=== PATIENT | male | born 1980 | race Caucasian/White ===

== ENCOUNTER 2016-07-17 10:21 | Emergency (ER) ==
[2016-07-17 10:27] VITALS: BP 128/94; TEMP 97.6; BMI 17.7
--- NOTE | 2016-07-17 10:38 | ED.PDOC ---
General ED Provider: Dr. GHULAM JEONG JR Chief Complaint: Scrotal Pain Stated Complaint: pain to rt groin area last pm--states feels like a pulled muscle--had hernia repair rt side in past--no n/v or fever--no diarrhea--no radiation[End]97.6 99 20 97% 128/94 8/10 denies dysuria--no n/v--pain worsened when walks-[End](WT 145 04/18). TESTICULAR CANCER 2004 Time Seen by Physician: 10:38 Mode of Arrival: Walk-In Information Source: Patient Exam Limitations: No limitations Nursing and Triage Documentation Reviewed and Agree: No Review of Systems - Review Of Systems Constitutional: Reports: No symptoms Eyes: Reports: No symptoms Ears, Nose, Mouth, Throat: Reports: No symptoms Respiratory: Reports: No symptoms Cardiac: Reports: No symptoms GI: Reports: Abdominal pain (burning LLQ when groin hurts no constipation no diarrhea) : Reports: Pain Musculoskeletal: Reports: Other Skin: Reports: No symptoms Neurological: Reports: No symptoms Endocrine: Reports: No symptoms Hematologic/Lymphatic: Reports: No symptoms All Other Systems: Other Past Medical History - Past Medical History Previously Healthy: Yes Endocrine: Reports: None Cardiovascular: Reports: None Respiratory: Reports: None Hematological: Reports: None Gastrointestinal: Reports: None Genitourinary: Reports: None Neuro/Psych: Reports: None Musculoskeletal: Reports: None Cancer: Reports: Other (testicular-RIGHT ORCHIECTOMY [id number] TO DISTAL AND MIDDLE CORD NOT TO PROXIMAL 90%SEMINOMA 10%GERMINOMA-FOLLOWUP 08/04/[address] KIDNEYSNO GARETH NO METS NO RENAL MASSES-NOTE NO CHEMO GIVEN) Other Pertinent Past Medical History: Abscess(ED)[id number] 06/19/15 - Surgical History General Surgical History: Reports: Orthopedic (RIGHT HAND LIGAMENT SURGERY DUE TO INJURY), Other (RIGHT TESTICLE REMOVED, CANCER (TESTICULAR CANCER 2004)) - Family History Family History: Reports: Unknown (TESTICULAR CANCER) - Social History Smoking Status: Current every day smoker, Heavy tobacco smoker Hx Substance Use: No Alcohol Screening: None Physical Exam - Physical Exam Appearance: Well-appearing, Thin Pain Distress: Moderate Neck: Supple Respiratory: Airway patent Musculoskeletal: Normal strength, ROM intact, No edema, No calf tenderness ( tender right pelvis no muscular [id number] pain on standing on heel [place] right groin lst testicel nontender right testible absent) Skin: Warm, Dry, Normal color Neurological: Sensation intact, Motor intact, Reflexes intact, Cranial nerves intact, Alert, Oriented Psychiatric: Affect appropriate, Anxious Interpretation - Radiology Interpretation Radiology Interpretation By: ED Physician Radiology Results: Negative Exam Interpreted: Other (pelvis irregularity ant ramus appears wnl) Critical Care Note - Critical Care Note Total Time (mins): 0 Course - Course Orders, Labs, Meds: Lab Review 07/17/16 10:50 Urine Color Yellow Urine Clarity Clear Urine pH 6.0 Ur Specific [place] 1.020 Urine Protein Negative Urine Glucose (UA) Negative Urine Ketones Negative Urine Blood Negative Urine Nitrite Negative Urine Bilirubin Negative Urine Urobilinogen 1.0 Ur Leukocyte Esterase Negative Orders Category Date Time Status UA [URINALYSIS C & S IF INDICATED] Stat LAB 07/17/16 10:50 Completed PELVIS 1 OR 2 VIEWS Stat RADS 07/17/16 10:47 Completed Vital Signs: Temp Pulse Resp BP Pulse Ox 07/17/16 10:22 97.6 F 99 H 20 128/94 H 97 Departure - Departure Time of Disposition: 11:30 Disposition: HOME SELF-CARE Discharge Problem: Strain of muscle of right groin region Instructions: Muscle Strain (ED) Condition: Good Pt referred to PMD for follow-up: Yes Additional Instructions: daily walking advil for pain norco for pain not releived(no more than two days) recheckPMD one week sooner if worse x-ray shows nothing of concern may follow up with [facility] Prescriptions: Hydrocodone Bit/Acetaminophen [[place] 5-325] 1 - 2 tab PO Q6HR PRN #12 tablet PRN Reason: pain Ibuprofen [Motrin] 600 mg PO QID PRN #30 tablet PRN Reason: PAIN Allergies/Adverse Reactions: Allergies tramadol Allergy (Verified 07/17/16 10:30) Vomiting Home Medications: Ambulatory Orders Hydrocodone Bit/Acetaminophen [[place] 5-325] 1 - 2 tab PO Q6HR PRN #12 tablet Ibuprofen [Motrin] 600 mg PO QID PRN #30 tablet 07/17/16
[2016-07-17 10:59] LABS: ADD URINE MICROSCOPIC NO; BILIRUBIN,URINE Negative (NEGATIVE); KETONES,URINE Negative (NEGATIVE); LEUKOCYTE ESTERASE ,URINE Negative (NEGATIVE); NITRITE,URINE Negative (NEGATIVE); PROTEIN,URINE Negative (NEGATIVE); URINE, BLOOD Negative (NEGATIVE)
--- NOTE | 2016-07-17 11:24 | DI ---
Exam: AP pelvis History: Tender right anterior ramus. History of testicular carcinoma Findings: AP view of the pelvis is performed and compared to the prior study of 04/09/2016. The [place] pelvic ring appears intact. There is no evidence of concerning osteolytic or osteoblastic proces s nor evidence of recent or healing fracture with particular attention to the right side of the pelv is. Both femoral heads are in satisfactory relationship to their respective acetabula. There are b enign-appearing lucencies with well-defined sclerotic margins seen at the level of the femoral necks bilaterally presumably due to degenerative cysts appearing unchanged dating to 04/09/2016. Sacroil iac joints and pubic symphysis appeared normal in width. Impression: No evidence of pathologic bony production or destruction nor disruption of the bony pel delilah ring nor the hips. Suspect benign-appearing lucencies with sclerotic margins to be benign cysts at the level of both fe moral neck regions appearing unchanged dating to 04/09/2016.
== END 2016-07-17 11:46 | disposition home or self-care (01) ==
LOC: ED 10:21
DX: S39.011A Strain of muscle, fascia and tendon of abdomen, initial encounter (principal); F17.210 Nicotine dependence, cigarettes, uncomplicated
CPT/HCPCS: 81001; 99282

== ENCOUNTER 2016-11-08 07:18 | Emergency (ER) ==
[2016-11-08 07:26] VITALS: BP 126/73; TEMP 97.3; BMI 18.3
[2016-11-08] MEDS ORDERED: TENIVAC IM ONE (07:30)
--- NOTE | 2016-11-08 07:36 | ED.PDOC ---
General ED Provider: Dr. MALU PATHAK-ER Chief Complaint: Puncture Wound Stated Complaint: i got hit by a nail gun accidentally yesterday Time Seen by Physician: 07:34 Mode of Arrival: Walk-In Information Source: Patient Exam Limitations: No limitations Nursing and Triage Documentation Reviewed and Agree: Yes Skin Complaint Exam - Skin/Soft Tissue Complaint/Exam Onset/Duration: 24hrs Symptoms Are: Still present Timing: Constant Initial Severity: Mild Current Severity: Mild Location: distal left thigh Character: Reports: Swelling, Painful. Denies: Redness, Raised Aggravating: Reports: Touch Alleviating: Reports: None Associated Signs and Symptoms: Reports: Bruising, Tenderness. Denies: Fever, Chills, Itching, Drainage, Joint swelling Related History: Reports: Recent trauma Related Surgical History: Reports: None Recent Exposure to Others w/Similar Symptoms: No Skin Findings: Present: Other Joint Tenderness Present: No Differential Diagnoses: Other Review of Systems - Review Of Systems Constitutional: Reports: No symptoms Eyes: Reports: No symptoms Ears, Nose, Mouth, Throat: Reports: No symptoms Respiratory: Reports: No symptoms Cardiac: Reports: No symptoms GI: Reports: No symptoms : Reports: No symptoms Musculoskeletal: Reports: No symptoms Skin: Reports: Other (puncture wound) Neurological: Reports: No symptoms Endocrine: Reports: No symptoms Hematologic/Lymphatic: Reports: No symptoms All Other Systems: Reviewed and Negative Past Medical History - Past Medical History Previously Healthy: Yes Endocrine: Reports: None Cardiovascular: Reports: None Respiratory: Reports: None Hematological: Reports: None Gastrointestinal: Reports: None Genitourinary: Reports: None Neuro/Psych: Reports: None Musculoskeletal: Reports: None Cancer: Reports: Other (testicular-RIGHT ORCHIECTOMY [id number] TO DISTAL AND MIDDLE CORD NOT TO PROXIMAL 90%SEMINOMA 10%GERMINOMA-FOLLOWUP 08/04/[address] KIDNEYSNO GARETH NO METS NO RENAL MASSES-NOTE NO CHEMO GIVEN) Other Pertinent Past Medical History: Abscess(ED)[id number] 06/19/15 - Surgical History General Surgical History: Reports: Orthopedic (RIGHT HAND LIGAMENT SURGERY DUE TO INJURY), Other (RIGHT TESTICLE REMOVED, CANCER (TESTICULAR CANCER 2004)) - Family History Family History: Reports: Unknown (TESTICULAR CANCER) - Social History Smoking Status: Current every day smoker, Heavy tobacco smoker Hx Substance Use: No Alcohol Screening: None Lives: With family - Immunizations Tetanus Shot up to Date: (unsure) Physical Exam - Physical Exam Appearance: Well-appearing, No pain distress, Well-nourished Pain Distress: Mild Eyes: MONIQUE, EOMI, Conjunctiva clear ENT: Ears normal, Nose normal, Oropharynx normal Neck: Supple Respiratory: Airway patent, Breath sounds clear, Breath sounds equal, Respirations nonlabored Cardiovascular: RRR, Pulses normal, No rub, No murmur GI/: Soft, Nontender, No masses, Bowel sounds normal, No Organomegaly Musculoskeletal: Normal strength, ROM intact, No edema, No calf tenderness Skin: Warm, Dry, Normal color (noted healing puncture wound distal left thigh) Neurological: Sensation intact, Motor intact, Reflexes intact, Cranial nerves intact, Alert, Oriented Psychiatric: Affect appropriate, Mood appropriate Interpretation - Radiology Interpretation Radiology Interpretation By: ED Physician Radiology Results: Negative Critical Care Note - Critical Care Note Total Time (mins): 0 Course - Course Orders, Labs, Meds: Orders Category Date Time Status Wound care [ED WOUND CARE] .ONCE EMERGENCY 11/08/16 07:31 Active Tetanus and Diphtheria Tox/Pf [Tenivac] MEDS 11/08/16 07:30 Discontinued 0.5 ml IM .ONCE ONE FEMUR, LEFT 2 VIEWS Stat RADS 11/08/16 07:31 Ordered Medications Discontinued Medications Generic Name Dose Route Start Last Admin Trade Name Freq PRN Reason Stop Dose Admin Tetanus/Diphtheria Toxoids Adsorbed 0.5 ml 11/08/16 07:30 11/08/16 07:40 Tenivac IM 11/08/16 07:31 0.5 ml .ONCE ONE Administration Vital Signs: Temp Pulse Resp BP Pulse Ox 11/08/16 07:19 97.3 F L 74 16 126/73 97 Departure - Departure Time of Disposition: 08:03 Disposition: HOME SELF-CARE Discharge Problem: Puncture wound Instructions: Puncture Wound (ED) Condition: Good Pt referred to PMD for follow-up: Yes Additional Instructions: keflex 500mg bid x 7days--norco 5mg q 6hrs prn pain #10--f/u with pcp to recheck the wound Allergies/Adverse Reactions: Allergies tramadol Allergy (Verified 11/08/16 07:27) Vomiting Home Medications: Ambulatory Orders 1 [No Reported Medications] 11/08/16 Disposition Discussed With: Patient
--- NOTE | 2016-11-08 08:12 | DI ---
EXAM: Four views of the left femur. History: Puncture wound. Findings: No acute fracture or dislocation. No distinct soft tissue radiopaque foreign bodies. Celena int spaces are preserved. Cam deformity of the proximal left femur. Impression: 1. No acute osseous abnormality. 2. No distinct soft tissue radiopaque foreign bodies seen in the region of interest. 3. Cam deformity of the proximal left femur can predispose to femoral acetabular impingement syndro me.
== END 2016-11-08 08:23 | disposition home or self-care (01) ==
LOC: ED 07:18
DX: S71.132A Puncture wound without foreign body, left thigh, initial encounter (principal); W29.4XXA Contact with nail gun, initial encounter; F17.210 Nicotine dependence, cigarettes, uncomplicated
CPT/HCPCS: 90471; 99283

== ENCOUNTER 2017-01-26 14:58 | Emergency (ER) ==
[2017-01-26 15:02] VITALS: BP 125/71; TEMP 98.7; BMI 18.2
[2017-01-26] MEDS ORDERED: LIDOCAINE 1 % AMP 5 ML (SUTURES) ONE (15:28)
[2017-01-26] MEDS ORDERED: LIDOCAINE 1 % AMP 5 ML (SUTURES) SQ STA (15:35)
--- NOTE | 2017-01-26 15:53 | ED.PDOC ---
General ED Provider: Dr. SIMRAN SONG Chief Complaint: Finger Pain/Injury Stated Complaint: Patient is a 36 year old male who while working partially Avulsed right pinky Time Seen by Physician: 15:53 Mode of Arrival: Walk-In Information Source: Patient Exam Limitations: No limitations Nursing and Triage Documentation Reviewed and Agree: Yes Review of Systems - Review Of Systems Constitutional: Reports: No symptoms Eyes: Reports: No symptoms Ears, Nose, Mouth, Throat: Reports: No symptoms Respiratory: Reports: No symptoms Cardiac: Reports: No symptoms GI: Reports: No symptoms : Reports: No symptoms Musculoskeletal: Reports: Joint pain Skin: Reports: Bruising (right 5th digit ) Neurological: Reports: No symptoms Endocrine: Reports: No symptoms Hematologic/Lymphatic: Reports: No symptoms All Other Systems: Reviewed and Negative Past Medical History - Past Medical History Previously Healthy: Yes Endocrine: Reports: None Cardiovascular: Reports: None Respiratory: Reports: None Hematological: Reports: None Gastrointestinal: Reports: None Genitourinary: Reports: None Neuro/Psych: Reports: None Musculoskeletal: Reports: None Cancer: Reports: Other (testicular-RIGHT ORCHIECTOMY [id number] TO DISTAL AND MIDDLE CORD NOT TO PROXIMAL 90%SEMINOMA 10%GERMINOMA-FOLLOWUP 08/04/[address] KIDNEYSNO GARETH NO METS NO RENAL MASSES-NOTE NO CHEMO GIVEN) Other Pertinent Past Medical History: Abscess(ED)[id number] 06/19/15 - Surgical History General Surgical History: Reports: Orthopedic (RIGHT HAND LIGAMENT SURGERY DUE TO INJURY), Other (RIGHT TESTICLE REMOVED, CANCER (TESTICULAR CANCER 2004)) - Family History Family History: Reports: Unknown (TESTICULAR CANCER) - Social History Smoking Status: Current every day smoker, Heavy tobacco smoker Hx Substance Use: No Alcohol Screening: None - Immunizations Tetanus Shot up to Date: Yes (2 months) Physical Exam - Physical Exam Appearance: Ill-appearing Ill-appearing: Mild Pain Distress: Moderate Cardiovascular: RRR, Pulses normal, No rub, No murmur Musculoskeletal: Normal strength, ROM intact, No edema, No calf tenderness Skin: Warm, Dry Neurological: Sensation intact Psychiatric: Anxious Procedures - Additional Procedures Additional Procedures: Digital Nerve Block, Other (Right 5th Finger nail removal ) Progress: After cleaning the base of the right 5th finger. 1 % lidocaine was used to anesthetize the finger giving digital block. The partially avulsed nail was then removed. Critical Care Note - Critical Care Note Total Time (mins): 0 Course - Course Orders, Labs, Meds: Orders Category Date Time Status Lidocaine HCl/Pf [Lidocaine 1 % Amp 5 ml (Sutures)] MEDS 01/26/17 15:28 Discontinued 5 ml .ROUTE .STK-MED ONE Lidocaine HCl/Pf [Lidocaine 1 % Amp 5 ml (Sutures)] MEDS 01/26/17 15:35 Discontinued 5 ml SQ ONCE STA Medications Discontinued Medications Generic Name Dose Route Start Last Admin Trade Name Ewa PRN Reason Stop Dose Admin Lidocaine HCl 5 ml 01/26/17 15:35 01/26/17 15:45 Lidocaine 1 % Amp 5 Ml (Sutures) SQ 01/26/17 15:36 5 ml ONCE STA Administration Vital Signs: Temp Pulse Resp BP Pulse Ox 01/26/17 14:59 98.7 F 74 16 125/71 97 Departure - Departure Time of Disposition: 16:08 Disposition: HOME SELF-CARE Discharge Problem: Pain in finger Nail avulsion, finger Qualifiers: Encounter type: initial encounter Qualifier Code: (S61.309A) Unspecified open wound of unspecified finger with damage to nail, initial encounter Instructions: Nail Avulsion (ED) Condition: Fair Pt referred to PMD for follow-up: Yes Additional Instructions: Take Motrin as needed for pain change dressing twice a day. Follow up with PCP in 3 days Allergies/Adverse Reactions: Allergies tramadol Allergy (Verified 01/26/17 15:04) Vomiting Home Medications: Ambulatory Orders 1 [No Reported Medications] 11/08/16 Disposition Discussed With: Patient
== END 2017-01-26 16:13 | disposition home or self-care (01) ==
LOC: ED 14:58
DX: S61.306A Unspecified open wound of right little finger with damage to nail, initial encounter (principal); F17.210 Nicotine dependence, cigarettes, uncomplicated
CPT/HCPCS: 99282

== ENCOUNTER 2018-12-13 15:46 | Emergency (ER) ==
[2018-12-13 15:52] VITALS: BP 150/99; TEMP 99.3; BMI 23.6
--- NOTE | 2018-12-13 17:35 | ED.PDOC ---
General ED Provider: Dr. MALU SANCHES Chief Complaint: Tooth Problem Stated Complaint: Lt Jaw pain. Suspects wisdom tooth attemptinng to erupt upper jaw. Prev all other teeth extrxacted Time Seen by Physician: 17:40 Mode of Arrival: Walk-In Information Source: Patient Nursing and Triage Documentation Reviewed and Agree: Yes Does patient meet sepsis criteria?: No If yes, has appropriate treatment been initiated?: No System Inflammatory Response Syndrome: Not Applicable Sepsis Protocol: For patient's 13 years and over: Temp is 96.8 and below OR 101 and greater Pulse >90 BPM Resp >20/minute Acutely Altered Mental Status Are patient's symptoms suggestive of a new infection, such as: -Pneumonia -Skin, Soft Tissue -Endocarditis -UTI -Bone, Joint Infection -Implantable Device -Acute Abdominal Infection -Wound Infection -Meningitis -Blood Stream Catheter Infection -Unknown EENT Complaint Exam - Dental/Oral Complaint/Exam Mechanism of Injury: No known trauma Onset/Duration: several weeks Symptoms Are: Still present Timing: Constant Initial Severity: Moderate Current Severity: Mild Location: Lt Jaw Character: Reports: Sharp, Throbbing Aggravating: Reports: Chewing Alleviating: Reports: None Associated Signs and Symptoms: Denies: Swelling, Discharge, Fever, Foul odor, Foul taste in mouth Related History: Reports: Previous tooth problem. Denies: Similar episode, Valvular heart disease, TMJ disfunction Cardiac Risk Factors: Reports: None Dental/Oral Surgical History: Reports: None Tooth Findings: Present: Normal findings (edentulous) Bleeding Present: No Septal Hematoma: No Foreign Body Present: No Dysphagia Present: No Drooling Present: No Asymmetrical Tonsillar Swelling Present: No Uvula Midline: Yes Elina-tonsillar Fluctuence: No Trismus Present: No Palatal Petechiae Present: No Lesions: Absent: Lip Exanthem: Absent: Lip Vesicles: Absent: Lip Differential Diagnoses: Odontogenic Pain, Post-Extraction Pain, TMJ Syndrome Review of Systems - Review Of Systems Constitutional: Reports: No symptoms Eyes: Reports: No symptoms Ears, Nose, Mouth, Throat: Reports: Mouth pain (dental pain) Respiratory: Reports: No symptoms Cardiac: Reports: No symptoms GI: Reports: No symptoms : Reports: No symptoms Musculoskeletal: Reports: Joint pain (TMJ) Skin: Reports: No symptoms Neurological: Reports: No symptoms Endocrine: Reports: No symptoms Hematologic/Lymphatic: Reports: No symptoms All Other Systems: Reviewed and Negative Past Medical History - Past Medical History Previously Healthy: Yes Endocrine: Reports: None Cardiovascular: Reports: None Respiratory: Reports: None Hematological: Reports: None Gastrointestinal: Reports: None Genitourinary: Reports: None Neuro/Psych: Reports: None Musculoskeletal: Reports: None Cancer: Reports: None - Surgical History General Surgical History: Reports: None - Family History Family History: Reports: None - Social History Smoking Status: Current every day smoker Hx Substance Use: No Alcohol Screening: None - Immunizations Tetanus Shot up to Date: Yes Physical Exam - Physical Exam Appearance: Well-appearing, No pain distress, Well-nourished Ill-appearing: None Pain Distress: Mild Eyes: MONIQUE, EOMI, Conjunctiva clear ENT: Ears normal, Nose normal, Oropharynx normal Respiratory: Airway patent, Breath sounds clear, Breath sounds equal, Respirations nonlabored Cardiovascular: RRR, Pulses normal, No rub, No murmur GI/: Soft, Nontender, No masses, Bowel sounds normal, No Organomegaly Musculoskeletal: Normal strength, ROM intact, No edema, No calf tenderness Skin: Warm, Dry, Normal color Neurological: Sensation intact, Motor intact, Reflexes intact, Cranial nerves intact, Alert, Oriented Psychiatric: Affect appropriate, Mood appropriate Interpretation - Radiology Interpretation Exam Interpreted: CT Scan (oral maxilla facial -normal) Critical Care Note - Critical Care Note Total Time (mins): 0 Course - Course Hematology/Chemistry: 12/13/18 17:57 12/13/18 17:57 Vital Signs: Temp Pulse Resp BP Pulse Ox 12/13/18 15:47 99.3 F 98 H 16 150/99 H 96 Departure - Departure Time of Disposition: 18:30 Disposition: HOME SELF-CARE Discharge Problem: Atypical odontalgia, TMJ arthralgia Instructions: Temporomandibular Disorder (ED), Toothache (ED) Condition: Fair Pt referred to PMD for follow-up: Yes (PCP) IPMP verified?: No Additional Instructions: Rinse mouth with warm salt water Take meds as directed Prescriptions: Hydrocodone Bit/Acetaminophen [[place] 10-325] 1 each PO Q6HR PRN #12 tablet PRN Reason: facial /jaw pain Cephalexin [Keflex] 500 mg PO BID #14 capsule Allergies/Adverse Reactions: Allergies No Known Allergies Allergy (Unverified 12/13/18 15:52) Home Medications: Ambulatory Orders Cephalexin [Keflex] 500 mg PO BID #14 capsule 12/13/18 Hydrocodone Bit/Acetaminophen [[place] 10-325] 1 each PO Q6HR PRN #12 tablet 12/13 Disposition Discussed With: Patient
[2018-12-13] MEDS ORDERED: TORADOL IM STA (17:55)
--- NOTE | 2018-12-13 18:04 | CT ---
EXAM: CT maxillofacial without intravenous contrast 12/13/2018. Sagittal and coronal reformatted im ages obtained HISTORY: Posterior maxilla pain COMPARISON: 04/16/2016 FINDINGS: The facial bones appear intact without fracture. The paranasal sinuses are normally aerated. There is no acute osseous abnormality. The intraorbital contents appear intact and symmetric. The superficial soft tissues show no acute ab normality. The patient is edentulous. No acute osseous abnormality identified. IMPRESSION: No acute process.
== END 2018-12-13 18:48 | disposition home or self-care (01) ==
LOC: MERGE 15:46 → ED 15:46
DX: K08.89 Other specified disorders of teeth and supporting structures (principal); M26.629 Arthralgia of temporomandibular joint, unspecified side; F17.210 Nicotine dependence, cigarettes, uncomplicated
CPT/HCPCS: 36415; 80053; 82550; 85025; 85651; 96372; 99283